=== PATIENT | male | born 1980 | race Caucasian/White ===

== ENCOUNTER 2020-06-16 08:10 | Emergency (ER) | payer OTHER ==
[2020-06-16] MEDS ORDERED: SODIUM CHLORIDE 0.9% 1,000 ML IV STA (08:46)
[2020-06-16] MEDS ORDERED: KETOROLAC 30 MG/ML VIAL IVP STA (08:46)
[2020-06-16 08:53] LABS: BASOPHILS % (AUTO) 0.3 %; EOSINOPHILS % (AUTO) 0.4 %; HGB - HEMOGLOBIN 15.9 g/dL (14.0-18.0); LYMPHOCYTES # (AUTO) 2.6 10^3/uL (1.5-3.5); MEAN CORPUSCULAR HEMOGLOBIN 30.8 pg (27.0-31.0); MEAN CORPUSCULAR HGB CONC 34.3 g/dL (32.0-36.0); MEAN CORPUSCULAR VOLUME 89.7 fL (80.0-94.0); MEAN PLATELET VOLUME 11.2 fL (7.4-11.4); MONOCYTES # (AUTO) 0.6 10^3/uL (0.0-1.0); MONOCYTES % (AUTO) 7.7 %; NEUTROPHILS # (AUTO) 4.6 10^3/uL (1.5-6.6); NEUTROPHILS % (AUTO) 58.3 %; PLT - PLATELET COUNT 236 10^3/uL (130-450); RED BLOOD COUNT 5.17 10^6/uL (4.70-6.10); RED CELL DISTRIBUTION WIDTH 12.7 % (12.0-15.0); WHITE BLOOD COUNT 7.9 x10^3/uL (4.8-10.8)
[2020-06-16 08:54] LABS: BILIRUBIN,URINE NEGATIVE (NEGATIVE); GLUCOSE, URINE (UA) NEGATIVE (NEGATIVE); KETONES,URINE (UA) NEGATIVE (NEGATIVE); LEUKOCYTE ESTERASE, URINE NEGATIVE (NEGATIVE); NITRITE,URINE NEGATIVE (NEGATIVE); OCCULT BLOOD,URINE LARGE (NEGATIVE); PH,URINE 5.5 PH (5.0-7.5); PROTEIN,URINE TRACE mg/dL (NEGATIVE); UROBILINOGEN,URINE 0.2 (NORMAL) E.U./dL (NORMAL)
[2020-06-16 08:55] LABS: CLARITY,URINE CLEAR (CLEAR)
[2020-06-16 09:04] LABS: ALBUMIN 4.4 g/dL (3.2-5.5); ALBUMIN/GLOBULIN RATIO 1.7 (1.0-2.2); BILIRUBIN,TOTAL 0.9 mg/dL (0.2-1.0); CALCIUM 9.4 mg/dL (8.5-10.3); CREATININE 1.1 mg/dL (0.6-1.2)
[2020-06-16 09:08] LABS: BACTERIA,URINE Few /HPF (None Seen); MUCUS,URINE Moderate Strands; SQUAMOUS EPITHELIAL CELL,UR FEW Squamous (<= Few)
--- NOTE | 2020-06-16 09:08 | ED Physician Documentation ---
PD HPI ABD PAIN - Stated complaint Stated Complaint: ABD PX/NAUSEA - Chief complaint Chief Complaint: Abd Pain - History obtained from History obtained from: Patient, Family - History of Present Illness Timing - onset: Today Timing - duration: Hours Timing - details: Abrupt onset, Still present Quality: Cramping, Aching, Pain Location: RLQ Radiation: Right flank Improved by: Other (Nothing) Worsened by: Other (Nothing) Associated symptoms: Nausea, Vomiting. No: Fever, Hematemesis, Diarrhea, Constipation Similar symptoms before: Has not had sx before Recently seen: Not recently seen - Additional information Additional information: Previously well 40-year-old male who is walking with pain in the right abdomen radiating into his right flank. He has had his appendix out previously. He has had an episode of vomiting this morning with the pain being severe. He does not know of any modifying factors for the pain. He has not had these symptoms previously. He denies any other intercurrent illness. Review of Systems Constitutional: denies: Fever Ears: denies: Ear pain Nose: denies: Congestion Cardiac: denies: Chest pain / pressure, Palpitations Respiratory: denies: Dyspnea, Cough GI: reports: Abdominal Pain, Nausea, Vomiting. denies: Constipation, Diarrhea : denies: Dysuria, Frequency PD PAST MEDICAL HISTORY - Past Medical History Past Medical History: No - Past Surgical History Past Surgical History: Yes General: Appendectomy - Present Medications Home Medications: Ambulatory Orders Medication Instructions Recorded Confirmed Oxycodone HCl/Acetaminophen 1 - 2 each PO Q6H PRN #14 tablet 06/16/20 [Percocet 5-325 mg Tablet] - Allergies Allergies/Adverse Reactions: Allergies Allergy/AdvReac Type Severity Reaction Status Date / Time No Known Drug Allergies Allergy Verified 06/16/20 08:22 - Social History Does the pt smoke?: No Smoking Status: Never smoker Does the pt drink ETOH?: No Does the pt have substance abuse?: No - Immunizations Immunizations are current?: Yes PD ED PE NORMAL - Vitals Vital signs reviewed: Yes (Normal) - General General: Alert and oriented X 3, Well developed/nourished, 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 (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) - HEENT HEENT: Atraumatic, PERRL, EOMI - Neck Neck: Supple, no meningeal sign, No bony TTP - Cardiac Cardiac: RRR, No murmur - Respiratory Respiratory: No respiratory distress, Clear bilaterally - Abdomen Abdomen: Normal bowel sounds, Soft, Non tender, Non distended, No organomegaly - Back Back: No CVA TTP, No spinal TTP - Derm Derm: Normal color, Warm and dry, No rash - Extremities Extremities: No deformity, No tenderness to palpate, Normal ROM s pain, No calf tenderness / cord - Neuro Neuro: Alert and oriented X 3, thrill performer 2-12 intact, No motor deficit, No sensory deficit, Normal speech Eye Opening: Spontaneous Motor: Obeys Commands Verbal: Oriented GCS Score: 15 - Psych Psych: Normal mood Results - Vitals Vitals: Vital Signs - 24 hr 06/16/20 06/16/20 08:18 09:21 Temperature 36.7 C Heart Rate 56 L 72 Respiratory 16 16 Rate Blood Pressure 126/80 125/80 O2 Saturation 100 99 Oxygen O2 Source Room air - Labs Labs: Laboratory Tests 06/16/20 06/16/20 06/16/20 08:24 08:24 08:24 WBC 7.9 RBC 5.17 Hgb 15.9 Hct 46.4 MCV 89.7 MCH 30.8 MCHC 34.3 RDW 12.7 Plt Count 236 MPV 11.2 Neut # (Auto) 4.6 Lymph # (Auto) 2.6 Davidson # (Auto) 0.6 Eos # (Auto) 0.0 Baso # (Auto) 0.0 Absolute Nucleated RBC 0.00 Nucleated RBC % 0.0 Sodium 140 Potassium 3.8 Chloride 106 Carbon Dioxide 27 Anion Gap 7.0 BUN 13 Creatinine 1.1 Estimated GFR (MDRD) 75 L Glucose 137 H Calcium 9.4 Total Bilirubin 0.9 AST 23 ALT 37 Alkaline Phosphatase 57 Total Protein 7.0 Albumin 4.4 Globulin 2.6 Albumin/Globulin Ratio 1.7 Lipase 23 Urine Color YELLOW Urine Clarity CLEAR Urine pH 5.5 Ur Specific Comstock >=1.030 H Urine Protein TRACE Urine Glucose (UA) NEGATIVE Urine Ketones NEGATIVE Urine Occult Blood LARGE H Urine Nitrite NEGATIVE Urine Bilirubin NEGATIVE Urine Urobilinogen 0.2 (NORMAL) Ur Leukocyte Esterase NEGATIVE Urine RBC 11-25 H Urine WBC 0-3 Ur Squamous Epith Cells FEW Squamous Urine Bacteria Few Urine Mucus Moderate Strands Ur Microscopic Review INDICATED Urine Culture Comments NOT INDICATED - Rads (name of study) CT ab/pel without Radiology: Prelim report reviewed (Impression: 1. Right proximal ureter calculus associated with right mild hydronephrosis. Nonobstructing bilateral renal calculi. Thickening of the distal esophagus; further assessment with endoscopy recommended to assess for neoplasm versus inflammation.), EMP read indepedently, See rad report Procedures - Bedside sono Bedside sono by EMP: With use of bedside ultrasound the right kidney is imaged it is sonographically nontender and there is evidence of hydronephrosis. PD MEDICAL DECISION MAKING - ED course Complexity details: reviewed old records, reviewed results, re-evaluated patiamy t, considered differential, d/w patient, d/w family ED course: 40-year-old male with right flank pain appears to have kidney stone on bedside evaluation. IV saline is administered as well as Toradol and a CT scan of the abdomen pelvis is obtained. The patient has excellent pain relief associated with this and the CT scan shows a 4 mm stone as well as 4 stones in each of his kidneys. Departure - Departure Disposition: 01 Home, Self Care Clinical Impression: Ureterolithiasis Condition: Stable Instructions: ED Stone Renal W Colic Follow-Up: DAVID TOURE DO [Primary Care Provider] - Prescriptions: Oxycodone HCl/Acetaminophen [Percocet 5-325 mg Tablet] 1 - 2 each PO Q6H PRN #14 tablet PRN Reason: pain Comments: Today on your CT scan there is some swelling to your distal esophagus. This is likely related to reflux or heartburn. Follow-up with your primary care doctor regarding this finding. Discharge Date/Time: 06/16/20 10:02
--- NOTE | 2020-06-16 09:40 | CT Report ---
PROCEDURE: Abdomen/Pelvis WO INDICATIONS: R flank pain kidney stone suspected TECHNIQUE: Noncontrast 5 mm thick sections acquired from the diaphragms to the symphysis. 5 mm coronal and sagi ttal reformats were then performed. For radiation dose reduction, the following was used: automated exposure control, adjustment of mA and/or kV according to patient size. COMPARISON: None. FINDINGS: Image quality: Excellent. ABDOMEN: Lung bases: Lung bases are clear. Heart size is normal. Solid organs: Liver and spleen are normal in size. Gallbladder is within normal limits Pancreas is normal in contours. No adrenal nodules. Kidneys are normal in size and contour. There are several nonobstructing bilateral renal calculi measuring less than 5 mm diameter. There is mild right hydrone phrosis and right proximal ureteral dilatation. Within the proximal right ureter, there is a 6 mm bartolo meter calculus. No left hydronephrosis. Left ureter is within normal limits. Peritoneum and bowel: Mild thickening of the distal esophagus. Unenhanced bowel loops demonstrate ot herwise normal wall thickness and caliber. No free fluid or air. Appendectomy clips. Nodes and vessels: No retroperitoneal or mesenteric adenopathy by size criteria. Aorta and inferior vena cava are normal in caliber. Miscellaneous: No ventral hernias. PELVIS: Genitourinary: Urinary bladder is decompressed, limiting evaluation for wall thickness. Miscellaneous: No inguinal hernias or adenopathy. Bones: No suspicious bony lesions. No vertebral body compression fractures. IMPRESSION: 1. Right proximal ureteral calculus associated with mild right hydronephrosis. 2. Nonobstructing bilateral renal calculi. 3. Thickening of the distal esophagus; further assessment with endoscopy recommended to assess for ne oplasm versus inflammation. Reviewed by: Rick Banerjee MD on 06/16/2020 9:39 AM PDT Approved by: Rick Banerjee MD on 06/16/2020 9:39 AM PDT Station ID: [id number]
[2020-06-16 09:53] VITALS: BP 125/80
== END 2020-06-16 10:02 | disposition home or self-care (01) ==
LOC: ED 08:10
DX: N13.2 Hydronephrosis with renal and ureteral calculous obstruction (principal)
CPT/HCPCS: 36415; 74176; 80053; 81001; 81003; 83690; 85025; 87086; 96361; 96374; 99284

== ENCOUNTER 2020-07-04 17:50 | Emergency (ER) | payer OTHER ==
--- NOTE | 2020-07-04 18:14 | ED Physician Documentation ---
History of Present Illness - Stated complaint Stated Complaint: MALE - Chief complaint Chief Complaint: Abd Pain - History obtained from History obtained from: Patient - History of Present Illness Timing: Today Pain level max: 10 Pain level now: 10 Quality: pain - Additonal information Additional information: 40-year-old male presents the emergency department right flank pain. Seen here 2 weeks ago for same and diagnosed with a kidney stone. He states that the pain increased today. Took oxycodone without relief. No fever. No chills. No dysuria or hematuria. No nausea or vomiting. Nothing makes it better or worse[place] to [place]rology but has not yet seen a urologist. Review of Systems Ten Systems: 10 systems reviewed and negative Constitutional: denies: Fever, Chills Respiratory: denies: Cough GI: reports: Nausea : denies: Dysuria, Frequency, Hesitancy Skin: denies: Rash Musculoskeletal: denies: Neck pain, Back pain Neurologic: denies: Headache PD PAST MEDICAL HISTORY - Past Medical History Past Medical History: Yes - Past Surgical History Past Surgical History: Yes General: Appendectomy - Present Medications Home Medications: Ambulatory Orders Medication Instructions Recorded Confirmed Oxycodone HCl/Acetaminophen 1 - 2 each PO Q6H PRN #14 tablet 06/16/20 [Percocet 5-325 mg Tablet] Ibuprofen [Motrin] 800 mg PO Q8H PRN #30 tablet 07/04/20 Oxycodone HCl/Acetaminophen 1 - 2 each PO Q6H PRN #14 tablet 07/04/20 [Percocet 5-325 mg Tablet] Tamsulosin [Flomax] 0.4 mg PO DAILY #14 capsule 07/04/20 - Allergies Allergies/Adverse Reactions: Allergies Allergy/AdvReac Type Severity Reaction Status Date / Time No Known Drug Allergies Allergy Verified 07/04/20 18:01 - Living Situation Living Situation: reports: With family Living Arrangement: reports: At home - Social History Does the pt smoke?: No Smoking Status: Never smoker Does the pt drink ETOH?: No Does the pt have substance abuse?: No - Immunizations Immunizations are current?: Yes PD ED PE NORMAL - Vitals Vital signs reviewed: Yes - General General: Alert and oriented X 3, No acute distress, Other (appears in pain) - HEENT HEENT: Moist mucous membranes - Neck Neck: Supple, no meningeal sign - Cardiac Cardiac: RRR, No murmur - Respiratory Respiratory: No respiratory distress, Clear bilaterally - Abdomen Abdomen: Soft, Non tender, Non distended - Back Back: No CVA TTP, No spinal TTP - Derm Derm: Warm and dry - Neuro Neuro: Alert and oriented X 3 - Psych Psych: Normal mood, Normal affect Results - Vitals Vitals: Vital Signs - 24 hr 07/04/20 07/04/20 17:54 19:17 Temperature 36.6 C 36.6 C Heart Rate 61 53 L Respiratory 18 15 Rate Blood Pressure 132/96 H 127/78 O2 Saturation 99 99 Oxygen O2 Source Room air - Labs Labs: Laboratory Tests 07/04/20 07/04/20 07/04/20 18:10 18:10 18:53 WBC 13.5 H RBC 5.27 Hgb 16.0 Hct 46.9 MCV 89.0 MCH 30.4 MCHC 34.1 RDW 12.7 Plt Count 259 MPV 10.7 Neut # (Auto) 10.6 H Lymph # (Auto) 1.8 Carbon # (Auto) 1.1 H Eos # (Auto) 0.0 Baso # (Auto) 0.0 Absolute Nucleated RBC 0.00 Nucleated RBC % 0.0 Sodium 139 Potassium 3.4 L Chloride 101 Carbon Dioxide 29 Anion Gap 9.0 BUN 18 Creatinine 1.4 H Estimated GFR (MDRD) 57 L Glucose 118 H Calcium 9.4 Total Bilirubin 0.8 AST 29 ALT 50 Alkaline Phosphatase 58 Total Protein 7.7 Albumin 4.8 Globulin 2.9 Albumin/Globulin Ratio 1.7 Lipase 26 Urine Color YELLOW Urine Clarity CLEAR Urine pH 6.0 Ur Specific Cowley >=1.030 H Urine Protein NEGATIVE Urine Glucose (UA) NEGATIVE Urine Ketones TRACE Urine Occult Blood LARGE H Urine Nitrite NEGATIVE Urine Bilirubin NEGATIVE Urine Urobilinogen 0.2 (NORMAL) Ur Leukocyte Esterase NEGATIVE Urine RBC 11-25 H Urine WBC 0-3 Ur Squamous Epith Cells NONE SEEN Urine Bacteria None Seen Ur Microscopic Review INDICATED Urine Culture Comments NOT INDICATED - Rads (name of study) CT abd/pelvis Radiology: Prelim report reviewed, EMP read contemporaneously, See rad report PD MEDICAL DECISION MAKING - ED course Complexity details: reviewed results, re-evaluated patient, considered differential, d/w patient ED course: 40-year-old male with a persistent right ureteral stone, moved from the proximal to distal right ureter. We will prescribe Flomax, Motrin, oxycodone for home. He was given Toradol, lidocaine and IV fluids here with good relief of his sym ptoms. Patient is well-appearing, nontoxic. Afebrile. No evidence of sepsis. Patient counseled regarding signs and symptoms for which I believe and urgent re-evaluation would be necessary. Patient with good understanding of and agreement to plan and is comfortable going home at this time This document was made in part using voice recognition software. While efforts are made to proofread this document, sound alike and grammatical errors may occur. Migration of a previously present proximal right ureteral stone into the distal right ureter, representing a significant improvement but without resolution subsequent to the initial CT scan from 06/16/2020. [id number] hydronephrosis persists on the right. Additional smaller bilateral nonobstructive renal collecting system calculi are noted each measuring approximately 2-4 mm in maximal dimension. Departure - Departure Disposition: 01 Home, Self Care Clinical Impression: Ureteral stone Condition: Good Instructions: ED Stone Renal W Colic Follow-Up: DAVID TOURE DO [Primary Care Provider] - Within 1 week Prescriptions: Tamsulosin [Flomax] 0.4 mg PO DAILY #14 capsule Ibuprofen [Motrin] 800 mg PO Q8H PRN #30 tablet PRN Reason: PAIN &/OR FEVER Oxycodone HCl/Acetaminophen [Percocet 5-325 mg Tablet] 1 - 2 each PO Q6H PRN #14 tablet PRN Reason: pain Comments: Drink plenty of water. Follow-up with your doctor for further care. Return if you worsen. Do not drink alcohol or drive while on narcotic pain medicine. Note that many narcotic pain relievers also contain tylenol/acetaminophen. Please ensure that your total dose of acetaminophen from all sources does not exceed 3 grams (3000mg) per day. You may constipated on this medication, take a stool softener such as "Colace" twice a day while you are on it. Also recommend a okgn-hri-inzqxcd laxative such as senna or MiraLAX any day that you do not have a bowel movement. If you received narcotic pain medication in the emergency department, do not drive or operate machinery for the next [address] Report Migration of a previously present proximal right ureteral stone into the distal right ureter, representing a significant improvement but without resolution subsequent to the initial CT scan from06/16/2020. Hxlh-nf-[id number] hydronephrosis persists on the right. Additional smaller bilateral nonobstructive renal collecting system calculi are noted each measuring approximately 2-4 mm in maximal dimension. Discharge Date/Time: 07/04/20 19:20
[2020-07-04] MEDS: KETOROLAC 30 MG/ML VIAL IVP STA (18:15)
[2020-07-04] MEDS: SODIUM CHLORIDE 0.9% 1,000 ML IV STA (18:15)
[2020-07-04 18:17] LABS: BASOPHILS % (AUTO) 0.2 %; EOSINOPHILS % (AUTO) 0.1 %; LYMPHOCYTES # (AUTO) 1.8 10^3/uL (1.5-3.5); LYMPHOCYTES % (AUTO) 12.9 %; MEAN CORPUSCULAR HEMOGLOBIN 30.4 pg (27.0-31.0); MEAN CORPUSCULAR HGB CONC 34.1 g/dL (32.0-36.0); MEAN PLATELET VOLUME 10.7 fL (7.4-11.4); MONOCYTES # (AUTO) 1.1 10^3/uL (0.0-1.0); MONOCYTES % (AUTO) 7.8 %; NEUTROPHILS # (AUTO) 10.6 10^3/uL (1.5-6.6); NEUTROPHILS % (AUTO) 78.5 %; PLT - PLATELET COUNT 259 10^3/uL (130-450); RED BLOOD COUNT 5.27 10^6/uL (4.70-6.10); RED CELL DISTRIBUTION WIDTH 12.7 % (12.0-15.0); WHITE BLOOD COUNT 13.5 x10^3/uL (4.8-10.8)
[2020-07-04] MEDS: LIDOCAINE-MPF 2% 6 ML in SODIUM CHLORIDE 0.9% 50 ML IV STA (18:22)
[2020-07-04 18:32] LABS: ALBUMIN 4.8 g/dL (3.2-5.5); ALBUMIN/GLOBULIN RATIO 1.7 (1.0-2.2); BILIRUBIN,TOTAL 0.8 mg/dL (0.2-1.0); CALCIUM 9.4 mg/dL (8.5-10.3); CREATININE 1.4 mg/dL (0.6-1.2); TOTAL PROTEIN 7.7 g/dL (6.7-8.2)
--- NOTE | 2020-07-04 18:42 | CT Report ---
PROCEDURE: Abdomen/Pelvis WO INDICATIONS: R flank pain, h/o renal stones TECHNIQUE: Noncontrast 5 mm thick sections acquired from the diaphragms to the symphysis. 5 mm coronal and sagi ttal reformats were then performed. For radiation dose reduction, the following was used: automated exposure control, adjustment of mA and/or kV according to patient size. COMPARISON: None. FINDINGS: Image quality: Excellent. ABDOMEN: Lung bases: Lung bases are clear. Heart size is normal. Solid organs: Liver and spleen are normal in size. Gallbladder appears normal Pancreas is normal i n contours. No adrenal nodules. Kidneys are normal in size, without left-sided hydronephrosis or ne phrolithiasis. There has been, however, migration of a 5 x 6 mm proximal right ureteral stone distal ly to the distal ureter, where maximal dimension currently measured is 5 mm. Additional nonobstructi ve stones are present within the collecting system of each kidney, smaller in size measuring approxim ately 3-4 mm in maximal dimension. Peritoneum and bowel: Unenhanced bowel loops demonstrate normal wall thickness and caliber. No free fluid or air. Nodes and vessels: No retroperitoneal or mesenteric adenopathy by size criteria. Aorta and inferior vena cava are normal in caliber. Miscellaneous: No ventral hernias. PELVIS: Genitourinary: Bladder wall thickness is normal. Distal right ureteral stone, no calculus within th e bladder lumen is seen. Miscellaneous: No inguinal hernias or adenopathy. Bones: No suspicious bony lesions. No vertebral body compression fractures. IMPRESSION: Migration of a previously present proximal right ureteral stone into the distal right ureter, represe nting a significant improvement but without resolution subsequent to the initial CT scan from 06/16/20 20. Saak-xq-gukoqfrf hydronephrosis persists on the right. Additional smaller bilateral nonobstructiv e renal collecting system calculi are noted each measuring approximately 2-4 mm in maximal dimension. Reviewed by: Clarke Stephenson MD on 07/04/2020 6:41 PM PDT Approved by: Clarke Stephenson MD on 07/04/2020 6:41 PM PDT Station ID: [id number]
[2020-07-04] MEDS: TAMSULOSIN 0.4 MG CAPSULE PO STA (18:44)
[2020-07-04 19:04] LABS: BILIRUBIN,URINE NEGATIVE (NEGATIVE); GLUCOSE, URINE (UA) NEGATIVE (NEGATIVE); KETONES,URINE (UA) TRACE mg/dL (NEGATIVE); LEUKOCYTE ESTERASE, URINE NEGATIVE (NEGATIVE); NITRITE,URINE NEGATIVE (NEGATIVE); OCCULT BLOOD,URINE LARGE (NEGATIVE); PROTEIN,URINE NEGATIVE (NEGATIVE); UROBILINOGEN,URINE 0.2 (NORMAL) E.U./dL (NORMAL)
[2020-07-04 19:05] LABS: CLARITY,URINE CLEAR (CLEAR)
[2020-07-04 19:19] VITALS: BP 127/78
[2020-07-04 19:19] LABS: BACTERIA,URINE None Seen /HPF (None Seen); SQUAMOUS EPITHELIAL CELL,UR NONE SEEN (<= Few)
== END 2020-07-04 19:20 | disposition home or self-care (01) ==
LOC: ED 17:50
DX: N13.2 Hydronephrosis with renal and ureteral calculous obstruction (principal)
CPT/HCPCS: 36415; 74176; 80053; 81001; 83690; 85025; 96365; 96375; 99284; 99285; A9270; J7040; 81003; 87086

== ENCOUNTER 2020-09-01 12:28 | Outpatient (CLI) | payer OTHER ==
--- NOTE | 2020-09-01 13:34 | XRAY Report ---
PROCEDURE: Abdomen 1 View X-Ray INDICATIONS: HISTORY OF KIDNEY STONES TECHNIQUE: 1 view of the abdomen were acquired. COMPARISON: Prior CT KUB dated 07/04/2020 reviewed which had identified several small nonobstructive b ilateral renal collecting system stones. FINDINGS: Surgical changes and devices: None. Bowel: No pneumoperitoneum. The bowel gas pattern is normal. There is mild colonic obstipation Soft tissues: No masses; visualized solid organ contours appear normal in size. No suspicious new a bdominal calcifications. The calculi present within the collecting system of the kidneys bilaterally cannot be seen and at the expected position of the distal right ureter corresponding to the area of prior ureteral calculus positioning there is a faintly visualized ovoid radiodensity suspicious for r epresenting persistent impaction of the distal right ureteral stone at the same site. Several surgica l clips noted at the right lower quadrant also seen on prior CT scanning consistent with appendectomy . Bones: No suspicious bony abnormalities. IMPRESSION: Suspect the distal right ureteral stone remains impacted within the ureter, seen as a fa int rounded calcification in the area of prior CT documentation of ureteral calculus. Please note susan t the additional calculi present over the collecting system of each kidney cannot be seen. Therefore these calculi appear to be relatively radiolucent. Reviewed by: Clarke Stephenson MD on 09/01/2020 1:33 PM PDT Approved by: Clarke Stephenson MD on 09/01/2020 1:33 PM PDT Station ID: [id number]
== END 2020-09-01 12:29 | disposition home or self-care (01) ==
LOC: DI 12:28
PROVIDERS: ATTEND Urology
DX: N20.1 Calculus of ureter (principal); Z87.442 Personal history of urinary calculi
CPT/HCPCS: 74018

== ENCOUNTER 2021-12-25 08:17 | Outpatient (CLI) | payer OTHER ==
--- NOTE | 2021-12-25 12:04 | MRI Report ---
PROCEDURE: Shoulder RT W/O INDICATIONS: PAIN IN SHOULDER TECHNIQUE: Noncontrast oblique coronal T2 fast spin echo with fat saturation, oblique sagittal T1 spin echo and T2 fast spin echo with fat saturation, axial T1 spin echo and T2 fast spin echo with fat saturation t hrough the shoulder. COMPARISON: None. FINDINGS: Image quality: Excellent. Rotator cuff: Mild infraspinatus and infraspinatus tendinosis. The teres minor and subscapularis tend ons are intact. The rotator cuff musculature is normal in bulk. Bones and bursae: No acute trabecular bone injury. No significant glenohumeral degenerative changes a re seen. Mild to moderate degenerative changes are seen at the acromioclavicular joint with small mar ginal osteophytes and subchondral cystic changes. No significant subacromial/subdeltoid bursal fluid or glenohumeral joint effusion. Capsule and soft tissues: Increased signal intensity is seen at the posterosuperior labrum that is s uspicious for a nondisplaced tear. No paralabral cyst is seen. The proximal biceps long head tendon d emonstrates mild tendinosis. There is mild partial effacement of the normal fat in the rotator interv al. The inferior glenohumeral ligament appears mildly thickened. IMPRESSION: 1.Nondisplaced tearing of the posterosuperior labrum. 2.Mild proximal biceps long head tendinosis. 3.Mild supraspinatus and infraspinatus tendinosis. No definite rotator cuff tendon tear is seen. 4.Mild to moderate acromioclavicular joint osteoarthrosis. 5.Partial effacement of the rotator interval fat and mild thickening of the inferior glenohumeral lig ament are nonspecific, but can be seen in the setting of the clinical syndrome of adhesive capsulitis . Reviewed by: Khanh Otero MD on 12/25/2021 12:02 PM PST Approved by: Khanh Otero MD on 12/25/2021 12:02 PM PST Station ID: [id number]
== END 2021-12-25 08:18 | disposition home or self-care (01) ==
LOC: DI 08:17
PROVIDERS: ATTEND Student in an Organized Health Care Education/Training Program
DX: S43.491A Other sprain of right shoulder joint, initial encounter (principal); M19.011 Primary osteoarthritis, right shoulder; M75.91 Shoulder lesion, unspecified, right shoulder

== ENCOUNTER 2022-02-19 07:11 | Outpatient (CLI) | payer OTHER ==
--- NOTE | 2022-02-19 15:06 | MRI Report ---
PROCEDURE: MRI cervical spine without contrast INDICATIONS: RADICULOPATHY CERVICAL REGION TECHNIQUE: Noncontrast sagittal T1 spin echo and T2 fast spin echo, sagittal STIR, foraminal oblique sagittal T2 fast spin echo, and axial gradient echo or T2 fast spin echo through the cervical spine. COMPARISON: None. FINDINGS: Image quality: Excellent. Alignment and Curvature: There is normal bony alignment. Bone Marrow: Marrow demonstrates normal overall signal. Spinal Cord: Visualized spinal cord has normal size and signal. No cerebellar tonsillar herniation. Paraspinous Soft Tissues: No paravertebral masses. Prevertebral soft tissues are normal in thicknes s. C2-C3: Normal in appearance. C3-C4: Normal in appearance. C4-C5: Normal in appearance. C5-C6: Disc space narrowing with posterior disc osteophyte complex results in moderate central steno sis with flattening of the right aspect of the ventral cord. Hypertrophic uncovertebral joints result s in moderate bilateral foraminal stenosis C6-C7: Normal in appearance. C7-T1: Normal in appearance. IMPRESSION: Degenerative disc disease and arthropathy results in moderate central and bilateral foraminal stenosi s Reviewed by: Priyank Garcia MD on 02/19/2022 2:05 PM ANDRE Approved by: Priyank Garcia MD on 02/19/2022 2:05 PM [place] Station ID: [id number]
== END 2022-02-19 07:12 | disposition home or self-care (01) ==
LOC: DI 07:11
PROVIDERS: ATTEND Orthopaedic Surgery
DX: M47.22 Other spondylosis with radiculopathy, cervical region (principal); M50.122 Cervical disc disorder at C5-C6 level with radiculopathy; M48.02 Spinal stenosis, cervical region

== ENCOUNTER 2024-01-02 10:51 | Outpatient (CLI) | payer OTHER ==
--- NOTE | 2024-01-02 11:28 | Sleep Patient Instructions ---
Sleep Center Visit Summary - Patient Visit Information Reason for Visit: Initial consult for evaluation of sleep disordered breathing and other sleep issues. - Patient Instructions Additional Instructions: You will be completing a sleep study, either an in-lab polysomnography (PSG) or home sleep study (HST). You will follow-up in the sleep care office after the sleep study is completed to hear the results and talk about therapy, if needed. You will be called by our office staff to schedule this appointment, but you may contact us with any questions. - Clinic Information Contact: [facility] [address] [place] [id number] [email or web address] T: [phone]
--- NOTE | 2024-01-02 11:28 | SLEEP CARE CONSULTATION ---
Information from patient questionnaire entered by Jimmy Alvarado. I have reviewed and concur with the information entered by Jimmy Alvarado. This document represents the service I personally performed and the decisions made by me, Alexandrea Aguilar ARNP. History of Present Illness Service Date and Time: 01/02/2024 1051 Reason for Visit: New patient Chief Complaint: reports: Unrefreshed sleep, Snoring, Excessive daytime sleepiness, Observed pauses in breathing, Fatigue, Frequent awakenings at night Date of Onset: 6-12MONTHS Usual bedtime: 9-10PM Time it takes to fall asleep: ABOUT AN HR Snores at night: Yes Observed to quit breathing while asleep: Yes Sleeps alone due to snoring: No Number of times waking at night: 4-6 Reasons for waking at night: reports: Snoring, Pain, Bathroom, Other (NOISE). denies: Choking, Gasping for air Toss, Turn, or Twitch while sleeping: Yes Recalls having dreams: Yes Usually gets out of bed at: 4-5AM; weekends about 6 AM Feels refreshed in the morning: No Morning headache: Yes (3-4 times a week; last for couple hours, takes ibuprofen) Sleepy or fatigued during the day: Yes Ever fallen asleep while driving: Yes (Drowsy driving; no accidents ) Takes day naps: Yes (daily for about 30 minutes if puts on timer; otherwise 1-2 hours) Dreams during day naps: No Prior sleep studies: No Additional HPI information: I had the pleasure of seeing HELEN BARRAGAN today regarding the possibility of him having a sleep disorder. His current complaints are excessive daytime sleepiness, fatigue, frequent night awakenings, observed pauses in breathing, snoring and unrefreshed sleep. His has told him that he is snoring a lot and is very restless when he sleeps. She has encouraged him to get it checked out. He has noticed that he is struggling to wake up, has no energy to work out and is taking naps during the day. His has noticed that he has pauses in breathing. He states he will wake up with headaches 3 to 4 days a week on average. He normally takes ibuprofen and it will resolve in 1 to 2 hours. If he does not take ibuprofen the headache may last all day. He has experienced some drowsy driving but denies any accidents. - Parasomnia Symptoms Ever been unable to move upon waking from sleep: No Walks in sleep: No Talks in sleep: Yes Ever acted out dreams in sleep: Yes ("jumping out of bed") Ever felt weak in the knees when startled or emotional: No Bothered by creepy, crawly, restless sensations in legs: Yes (just from sitting a lot at work) Problems with memory or concentration: Yes (mostly memory/ forgetful) Subjective Initial [place] Sleepiness Scale score: 14 (01/02/24) Past Medical History Past Medical History: reports: GERD, Other (kidney stones couple years ago; Shoulder injury in 2007, surgery to repair torn ligaments) Social History The patient's occupation is a [employer]. Patient is and lives in [place]. Have you smoked in the past 12 months: No Alcohol use: Yes Alcohol amount and frequency: 2-3 DRINKS 4-5 DAYS A WEEK Caffeine use: Yes Caffeine amount and frequency: 2-3 EVERYDAY Family History Family history of sleep disordered breathing: Yes Family Hx Sleep Apnea: Father: Snoring, Sibling: Snoring, Grandparent: Snoring Allergies and Home Medications Known drug allergies: No Drug allergies reviewed: Yes Home medication list reviewed: Yes (as listed) Allergy and home medication list: Allergies No Known Drug Allergies Allergy (Verified 12/31/23 11:08) Home Medications Medication Instructions Recorded Confirmed Last Taken Type Omeprazole See Rx Instructions .ROUTE .COMPLEX 01/02/24 01/02/24 Unknown History Review of Systems Weight gain over past 5 years: 30, mostly in last year Weight loss over past 5 years: 0 Cardiovascular: denies: high blood pressure Gastrointestinal: reports: heartburn Neurological: reports: headaches Psychiatric: denies: anxiety, depression Ear/Nose/Throat: denies: tonsillectomy Endocrine: reports: sluggishness Musculoskeletal: reports: joint pain, neck pain, back pain, mobility problems Physical Exam Vital signs obtained and entered by: JIMMY Stewart MA Blood Pressure: 134/85 (LEFT ARM) Cuff size: regular Heart Rate: 66 O2 Saturation: 96 Height: 5 ft 7 in Weight: 197 lb 9.6 oz Body Mass Index: 30.9 BMI Classification: Obese Neck circumference: 16.25 Mouth and throat: narrow oropharynx Soft palate: long Hard palate: normal Uvula: normal Uvula visualization: 25% Mallampati Class III Tongue: enlarged in size with teeth bower on lateral edges Tonsils: 1+ Neck: normal w/o lymphadenopathy or thyromegaly Heart: regular rate and rhythm Lungs: clear bilaterally Impression and Plan 1. Suspected Obstructive Sleep Apnea-Hypopnea Syndrome, as suggested by a history of loud and irregular snoring, observed cessation of breath while asleep, morning headache, frequent awakening during the night, unrefreshed sleep, cognitive impairment, and excessive daytime sleepiness. Narrow oropharynx and obesity are common predisposing factors for obstructive sleep apnea-hypopnea syndrome. I recommend proceeding to polysomnography to confirm the diagnosis and to assess severity. If the patient has significant sleep disordered breathing, a manual CPAP titration study will also be performed to find the optimal treatment pressure. I informed the patient of what the sleep studies involve and after some discussion, obtained agreement to proceed. The pathophysiology of obstructive sleep apnea-hypopnea syndrome was discussed with the patient and health risks of cardiovascular and cerebrovascular disease if not treated. 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 Patient agreed to plan. * Schedule polysomnography +- manual CPAP titration study and return in 1-2 weeks after the study to discuss result and initiate therapy. * Avoid long distance driving or driving when feeling sleepy. * Avoid alcohol, sedative and muscle relaxant around bedtime. * Attempt to lose weight. * Review instructions provided by trained office staff on how to prepare for the sleep study. * Return for follow-up after sleep study completed. Counseling Topics: Weight loss health impact Follow up with Sleep Care in: other (after sleep study) Plan: PSG/HST Visit Type: In Office Time Spent with Patient (minutes): 30 Provider Statement: I spent 100% of the Face to Face Visit with the patient with greater than 50% spent counseling the patient and coordination of care.
[2024-01-02 11:39] VITALS: BP 134/85; O2SAT 96
== END 2024-01-02 10:52 | disposition home or self-care (01) ==
LOC: SC 10:51
PROVIDERS: ATTEND Nurse Practitioner Family
DX: R06.83 Snoring (principal); G47.10 Hypersomnia, unspecified; R53.83 Other fatigue; G47.8 Other sleep disorders; R06.81 Apnea, not elsewhere classified; R51.9 Headache, unspecified; R41.89 Other symptoms and signs involving cognitive functions and awareness; E66.9 Obesity, unspecified; Z68.30 Body mass index [BMI] 30.0-30.9, adult
CPT/HCPCS: 99203; 99212

== ENCOUNTER 2024-01-26 20:38 | Outpatient (CLI) | payer OTHER | END 2024-01-26 20:39 | disposition home or self-care (01) | LOC: SC 20:38 | PROVIDERS: ATTEND Nurse Practitioner Family | DX: G47.10 Hypersomnia, unspecified (principal); R06.83 Snoring; R51.9 Headache, unspecified; R53.83 Other fatigue; R06.81 Apnea, not elsewhere classified; R41.89 Other symptoms and signs involving cognitive functions and awareness | CPT/HCPCS: 95810 ==

== ENCOUNTER 2024-02-17 09:15 | Outpatient (CLI) | payer OTHER ==
--- NOTE | 2024-02-17 09:40 | Sleep Patient Instructions ---
Sleep Center Visit Summary - Patient Visit Information Reason for Visit: Sleep study follow-up - Patient Instructions Additional Instructions: Your sleep study today was negative for significant sleep disordered breathing. You were found to have episodes of snoring. There are different ways to control snoring including weight loss, oral devices made by a dentist or surgical options through ENT specialist. You should not use oral devices that do not fit properly because they can affect your bite. You should also check insurance coverage of oral devices for snoring because they may not be cover well. You may obtain a referral to an ENT specialist through your primary provider. Follow-up as needed. - Clinic Information Contact: [facility] [address] [place] [address] [email or web address] T: [phone]
--- NOTE | 2024-02-17 09:42 | SLEEP CARE CONSULTATION ---
Information from patient questionnaire entered by Nusrat Alvarado. I have reviewed and concur with the information entered by Nusrat Alvarado. This document represents the service I personally performed and the decisions made by , Alexandrea Aguilar ARNP. History of Present Illness Service Date and Time: 02/17/2024914 Initial [place] Sleepiness Scale score: 14 (01/02/24) Current [place] Sleepiness Scale score: 9 (02/17/24) Additional HPI information: HELEN BARRAGAN returns for follow up and results of the recently performed polysomnography. The patient was informed of the following findings: No significant sleep disordered breathing with an average AHI of 3.8 and juju oxygen saturation of 89%. I explained the pathophysiology behind obstructive sleep apnea. Patient does not have sleep apnea and was advised how weight gain could increase the risk of developing sleep apnea in the future. I strongly encouraged the patient to lose weight. Patient has light snoring. Snoring can be reduced by weight loss. Weight loss is best achieved with diet consult. Patient instructed to contact PCP for referral. Snoring can also be treated with an oral appliance from a dentist. Advised to check insurance coverage. In addition, an ENT evaluation can be do to see if other treatment is indicated. Patient counseled not drink alcohol less than 4 hours before bedtime as it can increase snoring and apnea. Patient was cautioned about risks of drowsy driving until sleepiness symptoms resolve. Patient denies drowsy driving. Sleep Study - Results Type of Sleep Study: Polysomnography (COMPLETED 01/26/24) Prior sleep studies: No Polysomnography/Home Sleep Study results: IMPRESSION: The quality of the study is good. The patient had normal sleep efficiency. The sleep architecture was abnormal for sleep fragmentation and reduced amount of time spent in slow wave sleep (N3). Respiratory monitoring showed no significant sleep disordered breathing (AHI = 3.8) or hypoxia (juju oxygen saturation of 89%). The respiratory events occurred almost exclusively during supine sleep (supine AHI = 4.7; non-supine = 1.23). Snore was occasional and light in intensity. There was no significant periodic leg movement of sleep. Cardiac rhythm was normal sinus rhythm without significant arrhythmia. No abnormal behavior (parasomnia) observed during the night. Allergies and Home Medications Known drug allergies: No Drug allergies reviewed: Yes Home medication list reviewed: Yes (Omeprazole) Allergy and home medication list: Allergies No Known Drug Allergies Allergy (Verified 02/13/24 15:06) Review of Systems Review of systems same as previous: Yes (no changes) Physical Exam Vital signs obtained and entered by: NUSRAT Stewart MA Blood Pressure: 140/92 (RIGHT ARM) Cuff size: regular Heart Rate: 64 O2 Saturation: 99 Height: 5 ft 7 in Weight: 197 lb 9.6 oz Body Mass Index: 30.9 BMI Classification: Obese Impression and Plan 1. Snoring but no significant sleep disordered breathing. Patient advised that often weight loss will reduce snoring as well as apnea risk. An oral appliance can also be used for snoring. This would require a dental consultation. Patient cautioned not to use other online appliances as can cause bite issues. Patient is advised to check if insurance will cover. An ENT consult can also be helpful to determine if any other treatment is an option. 2. Obesity, unspecified. Currently patients BMI is 30.9. Obesity increases the risk of apnea, CPAP pressure requirements and overall health risks especially cardiovascular and diabetes. Thus patient is advised to lose weight. * Attempt to lose weight * Avoid alcohol consumption near bedtime * The patient is cautioned about driving until sleepiness is completely resolved. * Return as needed for follow up. Counseling Topics: Weight loss health impact Follow up with Sleep Care in: as needed Visit Type: In Office Time Spent with Patient (minutes): 11 Provider Statement: I spent 100% of the Face to Face Visit with the patient with greater than 50% spent counseling the patient and coordination of care.
[2024-02-17 09:44] VITALS: BP 140/92; O2SAT 99
== END 2024-02-17 09:16 | disposition home or self-care (01) ==
LOC: SC 09:15
PROVIDERS: ATTEND Nurse Practitioner Family
DX: R06.83 Snoring (principal); E66.9 Obesity, unspecified; Z68.30 Body mass index [BMI] 30.0-30.9, adult
CPT/HCPCS: 99212